=== PATIENT | male | born 1945 | race African-American/Black ===

== ENCOUNTER 2017-01-18 04:54 | Emergency (ER) | payer OTHER ==
[~2017-01-18] VITALS: Ht 185.4 cm; Wt 93.0 kg
[~2017-01-18 04:54] MED LIST: ALBUTEROL2.5 MG/31 INH; CATAPRES0.1 MG PO; FLONASE 0.05%50 MCG NASAL; NOHOMEMEDICATIONS; PREDNISONE 20 M20 M1 PO; PREDNISONE 20 M20 MG PO; PROAIR HFA8.5 GM INH; PROVENTIL HFA6.7 G1 INH; TESSALON PERLE100 MG PO; ZPAK PO
[2017-01-18] MEDS ORDERED: FLOMAX0.4 MG PO (05:10)
[2017-01-18] MEDS ORDERED: CLARITIN10 M2 PO (05:11)
[2017-01-18] MEDS ORDERED: ROBAXIN 750 MG750 M1 PO (06:03)
[2017-01-18] MEDS ORDERED: IBUPROFEN 600600 M1 PO (06:03)
[2017-01-18 06:19] VITALS: BP 148/93
== END 2017-01-18 06:22 | disposition home or self-care (01) ==
LOC: ER 04:54
DX: S13.4XXA Sprain of ligaments of cervical spine, initial encounter (principal); M62.830 Muscle spasm of back; I10 Essential (primary) hypertension; J45.909 Unspecified asthma, uncomplicated; Z90.49 Acquired absence of other specified parts of digestive tract; W06.XXXA Fall from bed, initial encounter; Y93.89 Activity, other specified; Y92.003 Bedroom of unspecified non-institutional (private) residence as the place of occurrence of the external cause; Y99.8 Other external cause status

== ENCOUNTER → 2017-03-22 | Outpatient (CLI) | payer OTHER ==
[~2017-03-22] MED LIST changes: +CLARITIN10 M2 PO; +FLOMAX0.4 MG PO; +IBUPROFEN 600600 M1 PO; +ROBAXIN 750 MG750 M1 PO
--- NOTE | ~2017-03-22 | 24HR ---
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 Study duration 24 hours and technical quality good. 2. Predominant rhythm sinus at an average heart rate of 69 bpm, range 52-100 bpm. Longest RR interval 1.8 seconds 3. Occasional atrial premature complexes and atrial couplets. One 6 beat brent of atrial tachycardia. No atrial fibrillation or atrial flutter. No heart block. No supraventricular tachycardia 4. Rare isolated premature ventricular complexes. No ventricular tachycardia. 5. No symptoms reported in the diary. Electronically Signed On 03-24-2017 7:52:51 CDT by Surinder Siegel [email or web address] <ELECTRONICALLY SIGNED> By: Surinder Siegel MD, [facility] 03/24/17 0752 1136 1136 Surinder Siegel MD, [facility] /EPI
== END ==
LOC: ULTRA 08:41 → CV 08:59
DX: R55 Syncope and collapse (principal)

== ENCOUNTER → 2017-04-14 | Outpatient (CLI) | payer OTHER ==
[~2017-04-14] VITALS: Ht 185.4 cm; Wt 95.3 kg
--- NOTE | ~2017-04-14 | EKG ---
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 Architect: Bayron CAPUTO : 1945 Requested By: Cachorro Hoffman Order Number: [id number] MD: Madi Kapadia Measurements Intervals [place] Rate: 55 P: 9 GA: 212 QRS: -10 QRSD: 101 T: 17 QT: 421 QTc: 403 Interpretive Statements Sinus rhythm Borderline prolonged GA interval Abnormal R-wave progression, early transition Compared to ECG 04/21/2016 07:01:14 No significant changes Electronically Signed On 04-14-2017 8:35:50 CDT by Madi Kapadia [email or web address] <ELECTRONICALLY SIGNED> By: Madi Kapadia MD 04/14/17 0835 1 1 Madi Kapadia MD /OPAL
--- NOTE | ~2017-04-14 | CATHLAB ---
[facility] [address] [place] [address] INVASIVE PROCEDURE REPORT Name: ELIO MCKAY Room #: REG GREG ÁlvarezJeannieJeffersonJeannie#: [id number] Admission: 04/14/17 Attend Phys: Cachorro Hoffman MD Discharge: Date of : 45 Date of Service: 04/14/17 1748 Report #: [id number] THIS REPORT FOR: //name// APPROVED REPORT Patient Details Patient Status: Out-Patient Room #: The patient is a 71 year-old male Event Personnel Cachorro Hoffman Associate Software Engineer, Triny Acevedo El-Ghussein, Yasmeen RN RN, Toya Mejía Scrub Procedures Performed Left Heart Cath w/or w/o Coronaries [id number] [facility] Indication Syncope, Positive stress test Procedure Narrative The patient was brought electively to the Cardiac Catheterization Laboratory and was prepped and draped in a sterile manner. The Right Groin^ was infiltrated with 1% Lidocaine subcutaneous anesthesia. A PINNACLE 4FR Sheath #[id number] sheath was inserted into the RFA^. Coronary angiography was performed using coronary diagnostic catheters. The right coronary system was accessed and visualized with a 4FR JL 5.0 #[id number] catheter. The left coronary system was accessed and visualized with a JR4 catheter. The left ventricle was accessed and visualized with a PIGTAIL catheter. Left ventricular/Aortic Valve gradient assessed via catheter pullback. Left ventriculogram was performed in ANGLIN projection. Hemostasis was obtained with manual pressure following sheath removal without any complications. The patient tolerated the procedure well and there were no complications associated with the procedure. There was no hematoma. Intraoperative Conscious Sedation Sedation start time: 935 Case end Time: 951 Fentanyl 50.0 mcg Versed 1.0 mg Fluoro Time: 2.21 minutes Dose: DAP 3346 cGycm2 444 mGy Contrast Type and Amount: Omnipaque 135 ml Coronary Angiography [facility] [place] [address] INVASIVE PROCEDURE REPORT Name: ELIO MCKAY Room #: REG Addie#: [id number] Admission: 04/14/17 Attend Phys: Cachorro Hoffman MD Discharge: Date of : 45 Date of Service: 04/14/17 1748 Report #: [id number] The patient's coronary anatomy is co- dominant. Diagnostic Cath Left Main Large caliber vessel, no flow limiting lesions. LAD Proximal segment is ectatic, no evidence for occlusive disease. Diagonal 1 Small-caliber vessel, with no flow-limiting lesions. Circumflex Codominant vessel. Proximal and mid segments are ectatic, but with no flow-limiting lesions. OM1 3 obtuse marginal arteries, small caliber vessels with no flow-limiting lesions. Right Coronary No evidence for flow-limiting lesions. R PDA Small-caliber vessel, no flow limiting lesions. Left Ventriculography The left ventricular ejection fraction is estimated to be >55%. Hemodynamics The aortic pressure is 142/78 mmHg with a mean of 102 mmHg. The left ventricular end diastolic pressure is 17 mmHg. There was no gradient across the aortic valve upon pullback. Pullback from the left ventricle to the aorta revealed no gradient across the aortic valve. Conclusion No evidence for occlusive disease. Recommend medical therapy. Recommendations Medical Therapy <ELECTRONICALLY SIGNED> By: Cachorro Hoffman MD 04/14/171747 47 47 Cachorro Hoffman MD /INF
[2017-04-14 07:44] VITALS: BP 134/88
[2017-04-14 08:08] LABS: HEMATOCRIT 45.4 % (42.0-52.0); HEMOGLOBIN 15.6 gm/dL (14.0-18.0); MCH 31.9 pg (26.0-34.0); MCHC 34.5 g/dL (28.0-37.0); MCV 92.4 fL (80.0-100.0); RBC 4.91 mil/uL (4.50-6.00); RDW 12.6 % (10.5-14.5); WBC 6.5 thou/uL (4.0-11.0)
[2017-04-14 08:21] LABS: ANION GAP 9 mmol/L (7-16); BUN 10 mg/dL (7-18); CALCIUM 8.7 mg/dL (8.5-10.1); CHLORIDE 105 mmol/L (98-107); CO2 26 mmol/L (21-32); CREATININE 1.2 mg/dL (0.7-1.3); GLUCOSE 111 mg/dL (74-106); POTASSIUM 4.1 mmol/L (3.5-5.1); SODIUM 140 mmol/L (136-145)
[2017-04-14 08:26] LABS: CHOLESTEROL 152 mg/dL (<200); HDL CHOLESTEROL 38 mg/dL (>40); LDL CHOLESTEROL 94 mg/dL (<100); TRIGLYCERIDE 101 mg/dL (<150); VLDL 20 mg/dL (<40)
== END | disposition home or self-care (01) ==
LOC: CATH 07:24
PROVIDERS: Internal Medicine Cardiovascular Disease
DX: I25.10 Atherosclerotic heart disease of native coronary artery without angina pectoris (principal); I10 Essential (primary) hypertension; J45.901 Unspecified asthma with (acute) exacerbation; K21.9 Gastro-esophageal reflux disease without esophagitis; Z87.891 Personal history of nicotine dependence; Z90.49 Acquired absence of other specified parts of digestive tract; Z79.899 Other long term (current) drug therapy

== ENCOUNTER 2019-05-13 14:07 | Emergency (ER) | payer OTHER ==
[~2019-05-13] VITALS: Ht 185.4 cm; Wt 95.3 kg
[2019-05-13] MEDS ORDERED: ZYRTEC10 MG PO (17:24)
[2019-05-13] MEDS ORDERED: AZITHROMYCIN 2250 MG PO (17:24)
[2019-05-13] MEDS ORDERED: MEDROLDOSEPACK PO (17:24)
[2019-05-13 17:51] VITALS: BP 132/92
== END 2019-05-13 17:51 | disposition home or self-care (01) ==
LOC: ER 14:07
DX: J32.9 Chronic sinusitis, unspecified (principal); I10 Essential (primary) hypertension; J45.909 Unspecified asthma, uncomplicated; I25.10 Atherosclerotic heart disease of native coronary artery without angina pectoris; Z90.49 Acquired absence of other specified parts of digestive tract

== ENCOUNTER 2019-05-27 04:42 | Emergency (ER) | payer OTHER ==
[~2019-05-27] VITALS: Ht 185.4 cm; Wt 92.1 kg
[~2019-05-27 04:42] MED LIST changes: +AZITHROMYCIN 2250 MG PO; +MEDROLDOSEPACK PO; +ZYRTEC10 MG PO
[2019-05-27 05:04] LABS: URINE BILIRUBIN NEGATIVE (Negative); URINE BLOOD NEGATIVE (Negative); URINE CLARITY CLEAR; URINE COLOR YELLOW; URINE GLUCOSE-RANDOM* NEGATIVE (Negative); URINE KETONES NEGATIVE (Negative); URINE LEUKOCYTES NEGATIVE (Negative); URINE NITRITE NEGATIVE (Negative); URINE PROTEIN (DIPSTICK) NEGATIVE (Negative); URINE SPECIFIC GRAVITY <= 1.005 (1.005-1.035); URINE UROBILINOGEN 0.2 E.U./dl (0.2-1.0)
[2019-05-27 05:18] LABS: BASOPHILS 0.6 % (0.0-2.0); EOSINOPHILS 3.1 % (0.0-3.0); HEMATOCRIT 47.2 % (42.0-52.0); HEMOGLOBIN 16.2 gm/dL (14.0-18.0); LYMPHOCYTES 33.6 % (24.0-44.0); MCH 31.9 pg (26.0-34.0); MCHC 34.4 g/dL (28.0-37.0); MCV 92.7 fL (80.0-100.0); MONOCYTES 4.8 % (1.0-8.0); PLATELET COUNT 168 thou/uL (150-400); POLYS 57.9 % (36.0-66.0); RBC 5.09 mil/uL (4.50-6.00); RDW 12.6 % (10.5-14.5); WBC 6.9 thou/uL (4.0-11.0)
[2019-05-27 05:25] LABS: ANION GAP 10 mmol/L (7-16); BUN 12 mg/dL (7-18); CHLORIDE 102 mmol/L (98-107); CO2 25 mmol/L (21-32); CREATININE 1.1 mg/dL (0.7-1.3); GLUCOSE 127 mg/dL (74-106); POTASSIUM 4.3 mmol/L (3.5-5.1); SODIUM 137 mmol/L (136-145)
[2019-05-27 05:35] LABS: MAGNESIUM 1.8 mg/dL (1.8-2.4); SGOT 29 U/L (15-37); SGPT 57 U/L (30-65); TOTAL BILIRUBIN 1.2 mg/dL (<0.1-1.0); TOTAL PROTEIN 7.8 g/dL (6.4-8.2); TROPONIN-I <0.06 ng/mL (<0.06)
[2019-05-27] MEDS ORDERED: VALIUM2 MG PO (05:38)
[2019-05-27 06:00] VITALS: BP 132/93
--- NOTE | 2019-05-30 07:59 | EKG ---
[place] [address] [place] [address] ELECTROCARDIOGRAM REPORT Name: ELIO MCKAY Room #: DEP RUDDY Real#: [id number] Admission: 05/27/19 Attend Phys: Discharge: 05/27/19 Date of : 45 Report #: [id number] THIS REPORT FOR: //name// 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 Consultant: cesar : 1945 Requested By: Reuben Rivera Order Number: [id number] MD: Surinder Siegel Measurements Intervals [place] Rate: 59 P: 44 [place]: 180 QRS: -11 QRSD: 105 T: 17 QT: 407 QTc: 404 Interpretive Statements Sinus rhythm Atrial premature complex Abnormal R-wave progression, early transition Compared to ECG 04/14/2017 08:22:22 Atrial premature complex(es) now present Electronically Signed On 05-30-2019 7:58:57 CDT by Surinder Siegel [email or web address] <ELECTRONICALLY SIGNED> By: Surinder Siegel MD, [facility] 05/30/19 0758 0504 0504 Surinder Siegel MD, [facility] /EPI
== END 2019-05-27 06:10 | disposition home or self-care (01) ==
LOC: ER 04:42
PROVIDERS: Emergency Medicine
DX: H81.10 Benign paroxysmal vertigo, unspecified ear (principal); R51 Headache; I10 Essential (primary) hypertension; I25.10 Atherosclerotic heart disease of native coronary artery without angina pectoris; J45.909 Unspecified asthma, uncomplicated; Z90.49 Acquired absence of other specified parts of digestive tract; Z87.891 Personal history of nicotine dependence

== ENCOUNTER 2020-10-19 01:28 | Emergency (ER) | payer OTHER ==
[~2020-10-19] VITALS: Ht 185.4 cm; Wt 99.8 kg
[~2020-10-19 01:28] MED LIST changes: +VALIUM2 MG PO
[2020-10-19] MEDS ORDERED: VENTOLIN HFA INH8 GM INH (03:46)
[2020-10-19] MEDS ORDERED: ZPAK PO (03:46)
[2020-10-19] MEDS ORDERED: PREDNISONE 20 M20 MG PO (03:46)
[2020-10-19 03:53] VITALS: BP 124/97
--- NOTE | 2020-10-20 10:15 | EKG ---
[place] [address] [facility] [employer] [address] ELECTROCARDIOGRAM REPORT Name: ELIO MCKAY Room #: DEP RUDDY Real#: [id number] Admission: 10/19/20 Attend Phys: Discharge: 10/19/20 Date of : 45 Report #: [id number] [facility] ED Test Date: 2020-10-19 Test Time: 01:46:47 Pat Name: ELIO MCKAY Department: Room: Gender: M Integrated Logistics Programs Director: OLGA : 1945 Requested By: Beronica Naranjo Order Number: [id number] MD: Madi Kapadia Measurements Intervals [place] Rate: 93 P: 76 [place]: 179 QRS: 25 QRSD: 100 T: 59 QT: 358 QTc: 446 Interpretive Statements Sinus rhythm Atrial premature complexes Abnormal R-wave progression, early transition Compared to ECG 05/27/2019 05:04:35 Electronically Signed On 10-20-2020 10:15:14 COMBINATION WORKER by Madi Kapadia [email or web address] <ELECTRONICALLY SIGNED> By: Madi Kapadia MD 10/20/20 1015 0146 0146 Madi Kapadia MD /OPAL
== END 2020-10-19 04:08 | disposition home or self-care (01) ==
LOC: ER 01:28
DX: J45.901 Unspecified asthma with (acute) exacerbation (principal); I10 Essential (primary) hypertension; I25.10 Atherosclerotic heart disease of native coronary artery without angina pectoris; Z87.891 Personal history of nicotine dependence; Z79.899 Other long term (current) drug therapy; Z90.49 Acquired absence of other specified parts of digestive tract